=== PATIENT | female | born 1960 | race Caucasian/White ===

== ENCOUNTER → 2018-06-15 | Outpatient (CLI) | payer BC ==
[~2018-06-15] MED LIST: CLOB15CR TP; DOCU-109 PO; GABA600T7 PO; HYDR-2761 PO; METH-38 PO; NAPR-695 PO; PROG100C15 PO
[2018-06-15 16:40] LABS: BASO # 0.1 x10^3/uL (0.0-0.2); BASO % 1 % (0-3); EOS # 0.2 x10^3/uL (0.0-0.7); EOS % 2 % (0-3); HEMATOCRIT 42.2 % (36.0-47.0); HEMOGLOBIN 13.9 g/dL (12.0-15.5); LYMPH # 2.7 x10^3/uL (1.0-4.8); LYMPH % 28 % (24-48); MEAN CORPUSCULAR HEMOGLOBIN 31 pg (25-35); MEAN CORPUSCULAR HGB CONC 33 g/dL (31-37); MEAN CORPUSCULAR VOLUME 93 fL (79-100); MONO # 0.8 x10^3/uL (0.0-1.1); MONO % 9 % (0-9); NEUT # 5.6 x10^3uL (1.8-7.7); NEUT % 59 % (31-73); PLATELET COUNT 257 x10^3/uL (140-400); RED BLOOD COUNT 4.52 x10^6/uL (3.50-5.40); RED CELL DISTRIBUTION WIDTH 15.1 % (11.5-14.5); WHITE BLOOD COUNT 9.5 x10^3/uL (4.0-11.0)
[2018-06-15 16:57] LABS: ALBUMIN 3.7 g/dL (3.4-5.0); ALBUMIN/GLOBULIN RATIO 1.1 (1.0-1.7); CALCIUM 9.1 mg/dL (8.5-10.1); CREATININE 0.9 mg/dL (0.6-1.0); GFR 64.8; POTASSIUM 3.8 mmol/L (3.5-5.1); TOTAL BILIRUBIN 0.2 mg/dL (0.2-1.0)
== END | disposition home or self-care (01) ==
LOC: SURGPAT 13:25
PROVIDERS: ATTEND Neurological Surgery
DX: Z01.818 Encounter for other preprocedural examination (principal); M48.061 Spinal stenosis, lumbar region without neurogenic claudication
CPT/HCPCS: 36415; 80053; 85025; 87641

== ENCOUNTER → 2018-06-22 | Day surgery (SDC) | payer BC ==
--- NOTE | 2018-06-19 13:50 | PREOP HP ---
DATE OF SERVICE: 06/22/2018 Lazaro Potter dictating for Dr. Jon Rosenthal. DATE OF SURGERY: 06/22/2018. HISTORY OF PRESENT ILLNESS: The patient is a pleasant 58-year-old who is having difficulty with low back pain and pain which radiates into her right buttock, thigh and leg. The problem has been present for 3-4 years. It has been gradually progressing. She rates her pain as a 4/10. She says in the mornings are worse. Standing increases her pain. She finds if she lies on her stomach and stretches, she gets some relief. She has been taking gabapentin and naproxen. She has had epidural steroid injections as recently as 05/14. She said she only has a short period of relief with an injection. She has also undergone physical therapy in the past for this problem without significant relief. There is no significant problem on the left side. The problem started spontaneously. PAST MEDICAL HISTORY: Thyroid disease. PAST SURGICAL HISTORY: in 1989, tubal ligation in 1980. D and C in 2011. Uterine ablation in 2011, right cervical lymph node excision in 2014, right cervical lymph node excision in 2018. FAMILY HISTORY: Cancer. SOCIAL HISTORY: Employed as a business data analyst. . Denies substance abuse. Smokes a half pack per day and has for 30 years. Drinks alcohol 1-2 times per month. Drinks coffee daily. ALLERGIES: No known drug allergies. CURRENT MEDICATIONS: Gabapentin, progesterone and naproxen. REVIEW OF SYSTEMS: A 12-point review of systems was obtained and is noncontributory except for that mentioned above. PHYSICAL EXAMINATION: NEUROSURGERY EXAMINATION: GENERAL APPEARANCE: Alert, pleasant, in no acute distress. HEENT: Head normocephalic, atraumatic. SKIN: Warm and dry. MUSCULOSKELETAL: Lumbar paraspinal muscle bulk is normal, restricted range of motion of the lumbar spine, [id number] tenderness of lower lumbar spine with palpation, normal range of motion of the lower extremities bilaterally. EXTREMITIES: No clubbing, cyanosis or edema. NEUROLOGIC: Alert and oriented x 3, normal recent and remote memory. Strength 5/5 in bilateral lower extremities, sensory was intact to light touch in the bilateral lower extremities. Reflexes were present and symmetric in lower extremities bilaterally, positive straight leg raising on the left, relieved by Lasegue maneuver, negative straight leg raising on the right, normal gait. IMAGING: Reviewed. I reviewed a lumbar MRI scan. On that study, there are degenerative changes throughout the lumbar spine to a [id number] degree. The principal abnormality is at L4-L5 where there is ligamentum flavum and facet joint hypertrophy associated with severe central canal stenosis. ASSESSMENT: 1. Spinal stenosis, lumbar region, with neurogenic claudication. 2. Low back pain. PLAN: I believe the problems at L4-L5 are responsible for a significant portion of her pain. I recommended a lumbar laminectomy, right direct. I did speak with the patient and her about surgery. I spoke about the technique of the operation as well as the risks associated with surgery including infection and nerve root injury. I did also discuss the expected postoperative course. They understand. They would like to go ahead. We will make the arrangements. JON ROSENTHAL MD DR: TRAMAINE/josue JOB#: [id number] / [id number]
[~2018-06-22] VITALS: Ht 167.6 cm; Wt 74.8 kg
[~2018-06-22] MED LIST changes: +BACITRACIN 50,000 UNIT in IV NORMAL SALINE 1000ML BAG 1,000 ML IRR ONE; +BUPIVAC MPF-EPI 0.5%-1:200000 30 ML VIAL. ONE; +DESFLURANE > 120 MINUTES IH ONE; +DEXAMETHASONE SOD PHOS 20 MG/5 ML VIAL. ONE; +GELATIN SPONGE SIZE 100. ONE; +HYDROcodone/APAP 5/325MG 1 TAB TABLET PO ONE; +HYDROmorphone 2 MG/ML VIAL IV PRN; +IV RINGERS,LACTATED 1000ML 1,000 ML IV SCH; +KETOROLAC 60 MG/2 ML INJ FOR OR. ONE; +LIDOCAINE 1% PF 2 ML VIAL. ID PRN; +LIDOCAINE 2% PF Vial for OR 5 ML VIAL. ONE; +MORPHINE SULFATE 2 MG/ML VIAL. IV PRN; +ONDANSETRON PF 4 MG/2 ML VIAL. IV PRN; +ONDANSETRON PF 4 MG/2 ML VIAL. ONE; +PHENYLEPHRINE 10 MG/ML VIAL. ONE; +PROCHLORPERAZINE 10 MG/2 ML VIAL. IV PRN; +PROPOFOL 20 ML IV ONE; +PROPOFOL 50 ML IV ONE; +REMIFENTANIL 2 MG VIAL. IV ONE; +ROCURONIUM 50 MG/5 ML VIAL. ONE; +SUCCINYLCHOLINE 200 MG/10 ML VIAL. ONE; +THROMBIN TOPICAL 20,000 UNIT SPRAY.SYRN KIT TP ONE; +fentaNYL PF VIAL 100 MCG/2 ML VIAL IV PRN; +fentaNYL PF VIAL 100 MCG/2 ML VIAL ONE
--- NOTE | 2018-06-22 10:41 | DISCH ---
DISCHARGE INSTRUCTIONS Condition on Discharge Condition on Discharge: Stable Activity After Discharge Activity Instructions for Disc: Activity as tolerated, Avoid exertion Other activity instructions: No driving for a week Bathing Instructions: Shower-keep dressing dry Lifting Instructions after Dis: No heavy lifting, No pulling or pushing, Do not lift >10 pounds Diet after Discharge Diet after Discharge: Regular Additional Diet Restrictions: resume home diet Wound Incision Care Wound/Incision Care: Ice to area for comfort Other wound/incision instructi: may remove dressing in 48 hrs if dry then may shower, no soaking Contacting the after DC Call your doctor for: Concerns you may have Follow-Up Follow up with: Dr. Rosenthal's nurse in 2 weeks [phone] ROSALIA ROSENTHAL MD Jun 22, 2018 10:41
[2018-06-22] MEDS: fentaNYL PF VIAL 100 MCG/2 ML VIAL IV PRN ×2 (11:02→11:37)
--- NOTE | 2018-06-22 11:13 | OP ---
DATE OF SURGERY: 06/22/2018 PREOPERATIVE DIAGNOSES: Lumbar spinal stenosis with lateral recess stenosis and severe lumbar radiculopathy, L4-L5, right. POSTOPERATIVE DIAGNOSES: Lumbar spinal stenosis with lateral recess stenosis and severe lumbar radiculopathy, L4-L5, right. OPERATION PERFORMED: Right direct laminectomy L4-L5, with removal of thickened ligament and decompression of dura and nerve root. FINDINGS: Synovial cyst, L4-L5 submitted as specimen The operation was done with EMG monitoring, fluoroscopy, microscopic dissection. SURGEON: Jon Rosenthal M.D. REPAIR MILLER: TYLER Coyle, assisted with the surgery. She assisted with the exposure, the microdecompression as well as the closure. OPERATIVE INDICATIONS: The patient is a very pleasant 58-year-old who developed intractable back and right leg pain, which progressively became more and more severe despite epidural steroid injections. On imaging studies, she had above-mentioned findings, and I recommended lumbar microsurgery. I spoke with her about the surgery, the risks, technique and expected postoperative course, and she wished to go ahead. DESCRIPTION OF PROCEDURE: Following general endotracheal anesthesia, the patient was positioned prone on the Bryson frame. Her lumbar region was prepped and draped in standard fashion. ZAIDA hose and AV impulse boots were applied for DVT prophylaxis. A microscope was draped. Fluoroscopy was draped and brought in the field. Monitoring was established. Ancef 2 grams was given less than 1 hour prior to initiation of surgery. Using fluoroscopic guidance, a midline incision was made directly over the L4-L5 interspace. I dissected down through skin and subcutaneous tissue, reflected the paraspinal muscles and placed a Lonepine microdisc retractor, brought in the microscope with a high speed air drill and using microscopic technique from this place. At this point forward, I drilled a generous hemilaminotomy. I grasped and began to peel down thickened ligamentum flavum and focally there was a thickening with a cystic like structure within the ligament, which was markedly compressing. I freed this up from the underlying dura with a Crile ganglion knife and then continued to trim away thickened ligament and bone. I performed a partial foraminotomy. I removed this material and then worked tilting the patient away from me across the midline with Kerrison's as well as high speed air drill. I then palpated the disc. There were large epidural veins, which I coagulated. The disc was fairly firm. There was no discectomy warranted. I explored carefully. There was no fragment. I irrigated. I obtained excellent hemostasis with both bipolar cautery as well as bone wax, but hemostasis was never a problem throughout the case. I removed the retractor, obtained hemostasis in the muscle, and then I closed the wound in layers with absorbable suture. The skin was closed with 4-0 subcuticular stitch. The operation went very well. The patient was awakened uneventfully. I was quite pleased with the surgery. JON ROSENTHAL MD DR: TRAMAINE/josue JOB#: [id number] / [id number]
[2018-06-22 11:26] VITALS: BP 125/69
== END | disposition home or self-care (01) ==
LOC: SURG 06:53 → EDUNIT# 08:30
PROVIDERS: ATTEND Neurological Surgery
DX: M48.062 Spinal stenosis, lumbar region with neurogenic claudication (principal); M54.16 Radiculopathy, lumbar region; Z98.51 Tubal ligation status; Z98.890 Other specified postprocedural states; F17.210 Nicotine dependence, cigarettes, uncomplicated; Z72.89 Other problems related to lifestyle; Z79.899 Other long term (current) drug therapy
CPT/HCPCS: 63047; 76000; 97161; A7015; J0330; J0696; J1100; J1885; J2001; J2405; J2704; J3010; J3490; J7030; J7120